=== PATIENT | female | born 1980 | race Caucasian/White ===

== ENCOUNTER 2016-07-06 01:22 | Emergency (ER) | payer OTHER ==
[~2016-07-06] VITALS: Ht 162.6 cm; Wt 113.6 kg
[~2016-07-06 01:22] MED LIST: ANTIVERT25 MG PO; BENADRYL25 MG PO; CILOXAN 0.1 APPLICAT LEFT EYE; ENDOCET 5-3251 EACH PO; FEOSOL325 MG PO; FLEXERIL10 MG PO; FLEXERIL5 MG PO; FLINTSTONES1 EACH PO; IBUPROFEN800 MG PO; KEFLEX500 MG PO; LORTAB 5-325 M1 EACH PO; MOBIC15 MG PO; MOTRIN800 MG PO; NAPROSYN500 MG PO; NORCO 5/3251 TABLET PO; NYSTATIN100000 UN1 PO; PERCOCET 5/31 TABLET PO; PREDNISONE50 MG PO; PREVACID30 MG PO; PRILOSEC10 MG PO; PROGESTERONE50 MG/ML IM; PROMETHAZINE HC25 M1 PO; PROVENTIL,2.5 MG/0.5 IH; ULTRAM50 MG PO; VENTOLIN HFA18 GM IH; XARELTO15 MG PO; ZOFRAN ODT4 MG PO; ZOFRAN4 MG PO
[2016-07-06] MEDS ORDERED: PERCOCET 5/31 TABLET PO (03:43)
[2016-07-06] MEDS ORDERED: VALIUM5 MG PO (03:43)
[2016-07-06 03:50] VITALS: BP 125/75
== END 2016-07-06 03:51 | disposition home or self-care (01) ==
LOC: EME 01:22
DX: M54.5 Low back pain (principal)
CPT/HCPCS: 99281; 99284

== ENCOUNTER 2016-09-04 14:38 | Emergency (ER) | payer OTHER ==
[~2016-09-04] VITALS: Ht 162.6 cm; Wt 111.4 kg
[~2016-09-04 14:38] MED LIST changes: +VALIUM5 MG PO
[2016-09-04 14:44] VITALS: BP 135/100
[2016-09-04] MEDS ORDERED: LORTAB 5-325 M1 EACH PO (16:38)
[2016-09-04] MEDS ORDERED: FLEXERIL10 MG PO (16:38)
[2016-09-04] MEDS ORDERED: NAPROSYN500 MG PO (16:38)
== END 2016-09-04 17:12 | disposition home or self-care (01) ==
LOC: EME 14:38
DX: S16.1XXA Strain of muscle, fascia and tendon at neck level, initial encounter (principal); V43.54XA Car driver injured in collision with van in traffic accident, initial encounter; Y92.410 Unspecified street and highway as the place of occurrence of the external cause; M62.830 Muscle spasm of back; M25.511 Pain in right shoulder
CPT/HCPCS: 72040; 73030; 99281; 99284; J1885

== ENCOUNTER 2017-04-27 15:41 | Emergency (ER) | payer OTHER ==
[~2017-04-27] VITALS: Ht 162.6 cm; Wt 118.0 kg
[2017-04-27 20:15] VITALS: BP 132/69
== END 2017-04-27 20:15 | disposition home or self-care (01) ==
LOC: EME 15:41
DX: S60.152A Contusion of left little finger with damage to nail, initial encounter (principal); W19.XXXA Unspecified fall, initial encounter
CPT/HCPCS: 73140; 99281; 99283

== ENCOUNTER 2017-07-20 21:24 | Emergency (ER) | payer OTHER ==
[~2017-07-20] VITALS: Ht 160 cm; Wt 118.7 kg
[2017-07-20 21:48] LABS: HEMOGLOBIN 12.4 G/DL (11.9-15.5); MCHC 33.5 G/DL (30.0-36.0); MCV 89.6 FL (83-99); PLATELET COUNT 342 K/uL (156-360); RBC DIS.WIDTH-CV 12.9 % (11.8-14.6); RBC DIS.WIDTH-SD 42.4 % (39-53); RED BLOOD COUNT 4.13 M/uL (3.80-5.20); WHITE BLOOD COUNT 10.9 K/uL (4.1-10.2)
[2017-07-20 22:04] LABS: CHLORIDE 106 mEq/L (99-109); POTASSIUM 3.8 mEq/L (3.7-5.4); SODIUM 141 mEq/L (136-147)
[2017-07-20 22:05] LABS: GLUCOSE 102 mg/dL (70-99)
[2017-07-20 22:09] LABS: CREATININE 0.9 mg/dL (0.6-1.3); GFR ESTIMATE (CALCULATED) > 59 mL/min/
[2017-07-20 22:10] LABS: UREA NITROGEN (BUN) 6 mg/dL (9-23)
[2017-07-20] MEDS ORDERED: MEDROL DOSEPAK4 MG PO (23:08)
[2017-07-20] MEDS ORDERED: VENTOLIN HFA18 GM IH (23:08)
[2017-07-21 00:10] VITALS: BP 118/82
== END 2017-07-21 00:26 | disposition home or self-care (01) ==
LOC: EXP 21:24 → EME 21:24 → EXP 07-21 00:26
DX: J45.901 Unspecified asthma with (acute) exacerbation (principal); G43.909 Migraine, unspecified, not intractable, without status migrainosus
CPT/HCPCS: 71046; 80048; 85027; 94640; 94640 76; 99281; 99284; J7512

== ENCOUNTER 2017-07-24 15:30 | Emergency (ER) | payer OTHER ==
[~2017-07-24] VITALS: Ht 162.6 cm; Wt 118.2 kg
[~2017-07-24 15:30] MED LIST changes: +MEDROL DOSEPAK4 MG PO
[2017-07-24 16:55] LABS: HEMATOCRIT 35.8 % (36.0-46.0); HEMOGLOBIN 12.5 G/DL (11.9-15.5); MCH 30.7 PG (29.0-34.0); MCHC 34.9 G/DL (30.0-36.0); PLATELET COUNT 356 K/uL (156-360); RBC DIS.WIDTH-CV 12.8 % (11.8-14.6); RBC DIS.WIDTH-SD 41.3 % (39-53); RED BLOOD COUNT 4.07 M/uL (3.80-5.20); WHITE BLOOD COUNT 12.5 K/uL (4.1-10.2)
[2017-07-24 17:06] LABS: CHLORIDE 108 mEq/L (99-109); POTASSIUM 3.4 mEq/L (3.7-5.4); SODIUM 141 mEq/L (136-147)
[2017-07-24 17:07] LABS: GLUCOSE 85 mg/dL (70-99)
[2017-07-24 17:11] LABS: CREATININE 0.8 mg/dL (0.6-1.3); GFR ESTIMATE (CALCULATED) > 59 mL/min/
[2017-07-24 17:12] LABS: UREA NITROGEN (BUN) 7 mg/dL (9-23)
[2017-07-24 17:51] VITALS: BP 131/94
[2017-07-24 18:09] LABS: TROP-I INTERPRETATION NEGATIVE; TROPONIN-I < 0.01 ng/mL (0.0-0.30)
[2017-07-24] MEDS ORDERED: CHERATUSSIN AC473 ML PO (18:29)
[2017-07-24] MEDS ORDERED: PROVENTIL,2.5 MG/3 M IH (18:29)
== END 2017-07-24 18:52 | disposition home or self-care (01) ==
LOC: EME 15:30
PROVIDERS: Nurse Practitioner Family
DX: J20.9 Acute bronchitis, unspecified (principal); J45.909 Unspecified asthma, uncomplicated; Z79.51 Long term (current) use of inhaled steroids; Z86.718 Personal history of other venous thrombosis and embolism; Z90.49 Acquired absence of other specified parts of digestive tract; Z90.710 Acquired absence of both cervix and uterus
CPT/HCPCS: 71046; 80048; 84484; 85027; 85379; 93005; 94644